=== PATIENT | male | born 1960 | race Caucasian/White ===

== ENCOUNTER 2020-06-21 10:17 | Inpatient (IN) | payer BC ==
[2020-06-21] MEDS ORDERED: Sodium Chloride 0.9% 1,000 ML IV ONE (11:33)
[2020-06-21] MEDS ORDERED: Sodium Chloride 0.9% 10 ML Syringe FLUSH PRN ×2 (11:33→11:52)
[2020-06-21] MEDS ORDERED: Iopamidol 612 MG/ML 100 ML Bottle IVPUSH ONE (11:52)
[2020-06-21] MEDS ORDERED: cefTRIAXone 1 GM in Sodium Chloride 0.9% 100 ML IV ONE (11:53)
--- NOTE | 2020-06-21 11:53 | EDM.PDOC ---
ED HPI GENERAL MEDICAL PROBLEM - General Chief Complaint: Genitourinary Problem Stated Complaint: HIGH WHITE BLOOD COUNT Time Seen by Provider: 06/21/20 11:23 Source of Information: Reports: Patient, Old Records, RN Notes Reviewed History Limitations: Reports: No Limitations - History of Present Illness INITIAL COMMENTS - FREE TEXT/NARRATIVE: Patient is a 59-year-old male presenting to the emergency department after being sent here by his primary care provider. He states that this last Saturday, he began to have body aches, fever, and generally felt unwell. Later that evening, he woke up and had blood in his urine as well as burning with urination. He continued to feel unwell throughout the day on Saturday. He was seen by his primary care provider in the clinic on Saturday, blood work was completed and showed that he had a significantly elevated white count at 21.3. He was also found to have 50-75 RBCs, 50-75 WBCs, and many bacteria in his urine. In the clinic yesterday, he received an injection of 1 g of Rocephin was started on ciprofloxacin. Last evening he began spiking fevers again and had return of body aches. He contacted his primary this morning. Blood work was checked in the office and his white count was found to have further increased to 22.34. He was sent to our facility for evaluation and possible admission for IV antibiotics due to failed outpatient treatment. He denies any nausea, vomiting, diarrhea, flank pain, or abdominal pain but does state that he has a decreased appetite. Patient states that he does have a history of bladder cancer which was in remission. He has also had elevated PSA levels since last August. He was scheduled to see Dr. Jennifer Hernandez, urologist, to have a prostate biopsy completed today, however the appointment was canceled due to his illness. He denies any known history of prostatitis or recurrent urinary tract infections. Bladder Pain Score (Numeric/FACES): 5 - Related Data Allergies Allergy/AdvReac Type Severity Reaction Status Date / Time SOHA Inhibitors Allergy Airway Verified 06/21/20 14:41 Tightness lisinopril Allergy Airway Verified 06/21/20 14:41 Tightness Home Meds: Home Meds Potassium Chloride 10 meq PO BID 10/19/13 [History] Simvastatin [Zocor] 20 mg PO BEDTIME 10/19/13 [History] Temazepam [Restoril] 15 mg PO BEDTIME PRN 10/19/13 [History] Calcium Carb, Citrate/Vit D3 [Citracal + D ER] 500 mg PO BID 06/21/20 [History] Chlorthalidone 25 mg PO DAILY 06/21/20 [History] Cholecalciferol (Vitamin D3) [Vitamin D] 2,000 mg PO DAILY 06/21/20 [History] Ciprofloxacin [Cipro XR 500 MG Tablet] 500 mg PO BID 06/21/20 [History] Indomethacin 50 mg PO TID PRN 06/21/20 [History] Levocetirizine Dihydrochloride [Xyzal] 5 mg PO BEDTIME 06/21/20 [History] Metoprolol Tartrate [Lopressor] 50 mg PO BID 06/21/20 [History] Multivitamin 1 tab PO DAILY 06/21/20 [History] Olmesartan Medoxomil [Benicar] 40 mg PO BEDTIME 06/21/20 [History] Pantoprazole [ProTONIX] 40 mg PO DAILY 06/21/20 [History] Tamsulosin [Tamsulosin 24 Hr] 0.4 mg PO BEDTIME 06/21/20 [History] Past Medical History Cardiovascular History: Reports: High Cholesterol, Hypertension Other Respiratory History: lung ca Genitourinary History: Reports: Other (See Below) Other Genitourinary History: bladder ca Oncologic (Cancer) History: Reports: Bladder, Lung Social & Family History - Tobacco Use Tobacco Use Status *Q: Never Tobacco User - Recreational Drug Use Recreational Drug Use: No ED ROS GENERAL - Review of Systems Review Of Systems: See Below Constitutional: Reports: Fever, Chills, Weakness, Fatigue, Decreased Appetite HEENT: Reports: No Symptoms Respiratory: Reports: No Symptoms Cardiovascular: Reports: No Symptoms Endocrine: Reports: No Symptoms GI/Abdominal: Reports: Decreased Appetite, Nausea. Denies: Diarrhea, Vomiting : Reports: Dysuria, Hematuria Musculoskeletal: Reports: No Symptoms Skin: Reports: No Symptoms Neurological: Reports: No Symptoms Psychiatric: Reports: No Symptoms Hematologic/Lymphatic: Reports: No Symptoms Immunologic: Reports: No Symptoms ED EXAM, RENAL/ - Physical Exam Exam: See Below General Appearance: Alert, WD/WN, No Apparent Distress Respiratory/Chest: No Respiratory Distress, Lungs Clear, Normal Breath Sounds, No Accessory Muscle Use, Chest Non-Tender Cardiovascular: Normal Peripheral Pulses, Regular Rate, Rhythm, No Edema, No Gallop, No JVD, No Murmur, No Rub GI/Abdominal: Normal Bowel Sounds, Soft, Non-Tender, No Organomegaly, No Distention, No Abnormal Bruit, No Mass Back Exam: Normal Inspection, Full Range of Motion. No: CVA Tenderness (L), CVA Tenderness (R) Neurological: Alert, Oriented, CN II-XII Intact, Normal Cognition, Normal Gait, Normal Reflexes, No Motor/Sensory Deficits Psychiatric: Normal Affect, Normal Mood Skin Exam: Warm, Dry, Intact, Normal Color, No Rash Course - Vital Signs Last Recorded V/S: Last Vital Signs Temp 98.2 F 06/22/20 20:29 Pulse 71 06/22/20 20:33 Resp 14 06/22/20 20:29 BP 128/81 06/22/20 20:33 Pulse Ox 92 L 06/22/20 20:29 - Orders/Labs/Meds Orders: Medication Orders Acetaminophen (Tylenol) 650 mg PO Q4H PRN PRN Reason: Pain (Mild 1-3)/fever Calcium Carbonate (Calcium Carbonate/Vitamin D 600 Mg-200 Unit) 1 tab PO BID [facility] Last Admin: 06/22/20 20:33 Dose: 1 tab Documented by: Admin: 06/22/20 09:00 Dose: 1 tab Documented by: Admin: 06/21/20 21:03 Dose: 1 tab Documented by: ISAURA Chlorthalidone (Chlorthalidone) 25 mg PO DAILY [facility] Last Admin: 06/22/20 09:00 Dose: 25 mg Documented by: EMILIE Cholecalciferol (Vitamin D3) 50 mcg PO DAILY [facility] Last Admin: 06/22/20 09:00 Dose: 50 mcg Documented by: EMILIE Enoxaparin Sodium (Lovenox) 40 mg SUBCUT DAILY [facility] Last Admin: 06/22/20 09:00 Dose: 40 mg Documented by: EMILIE Piperacillin Sod/Tazobactam (Sod 4.5 gm/ Sodium Chloride) 100 mls @ 25 mls/hr IV Q8H [facility] Last Admin: 06/22/20 14:39 Dose: 25 mls/hr Documented by: Infusion: 06/22/20 10:19 Dose: 25 mls/hr Documented by: Admin: 06/22/20 06:19 Dose: 25 mls/hr Documented by: Infusion: 06/22/20 01:07 Dose: 25 mls/hr Documented by: Admin: 06/21/20 21:07 Dose: 25 mls/hr Documented by: ISAURA Losartan Potassium (Cozaar) 100 mg PO BEDTIME [facility] Last Admin: 06/22/20 20:32 Dose: 100 mg Documented by: Admin: 06/21/20 21:04 Dose: 100 mg Documented by: ISAURA Metoprolol Tartrate (Lopressor) 50 mg PO BID [facility] Last Admin: 06/22/20 20:33 Dose: 50 mg Documented by: Admin: 06/22/20 09:00 Dose: 50 mg Documented by: Admin: 06/21/20 21:03 Dose: 50 mg Documented by: ISAURA Multivitamins (Thera) 1 each PO DAILY [facility] Last Admin: 06/22/20 09:00 Dose: 1 each Documented by: EMILIE Ondansetron HCl (Zofran) 4 mg IV Q6H PRN PRN Reason: Nausea/Vomiting Pantoprazole Sodium (Protonix) 40 mg PO ACBREAKFAST [facility] Last Admin: 06/22/20 06:19 Dose: 40 mg Documented by: ISAURA Potassium Chloride (Klor-Con M20) 40 meq PO BID [facility] Stop: 06/23/20 09:01 Last Admin: 06/22/20 20:31 Dose: 40 meq Documented by: Admin: 06/22/20 10:17 Dose: 40 meq Documented by: EMILIE Simvastatin (Zocor) 20 mg PO BEDTIME [facility] Last Admin: 06/22/20 20:33 Dose: 20 mg Documented by: Admin: 06/21/20 21:03 Dose: 20 mg Documented by: ISAURA Sodium Chloride (Saline Flush) 10 ml FLUSH ASDIRECTED PRN PRN Reason: Keep Vein Open Last Admin: 06/21/20 11:48 Dose: 10 ml Documented by: MARCOS Tamsulosin HCl (Flomax) 0.4 mg PO BEDTIME [facility] Last Admin: 06/22/20 20:33 Dose: 0.4 mg Documented by: Admin: 06/21/20 21:03 Dose: 0.4 mg Documented by: [id number] Temazepam (Restoril) 15 - 45 mg PO BEDTIME PRN PRN Reason: Anxiety Last Admin: 06/21/20 21:06 Dose: 15 mg Documented by: [email or web address] Labs: Laboratory Tests 06/21/20 06/21/20 06/21/20 Range/Units 11:50 11:50 11:50 WBC 20.25 H (4.23-9.07) K/mm3 RBC 5.27 (4.63-6.08) M/mm3 Hgb 15.8 (13.7-17.5) gm/dl Hct 45.9 (40.1-51.0) % MCV 87.1 (79.0-92.2) fl MCH 30.0 (25.7-32.2) pg MCHC 34.4 (32.2-35.5) g/dl RDW Std Deviation 40.3 (35.1-43.9) fL Plt Count 194 (163-337) K/mm3 MPV 8.4 L (9.4-12.3) fl Neutrophils % (Manual) 82 H (40-60) % Band Neutrophils % 0 (0-10) % Lymphocytes % (Manual) 10 L (20-40) % Atypical Lymphs % 0 % Monocytes % (Manual) 7 (2-10) % Eosinophils % (Manual) 1 (0.8-7.0) % Basophils % (Manual) 0 L (0.2-1.2) Platelet Estimate Adequate Anisocytosis 1+ slight RBC Morph Comment Abnormal PT 12.0 (9.7-12.0) SECONDS INR 1.12 Sodium 132 L (136-145) mEq/L Potassium 3.5 (3.5-5.1) mEq/L Chloride 96 L (98-107) mEq/L Carbon Dioxide 25 (21-32) mEq/L Anion Gap 14.5 (5-15) BUN 15 (7-18) mg/dL Creatinine 0.9 (0.7-1.3) mg/dL Est Cr Clr Drug Dosing 91.80 mL/min Estimated GFR (MDRD) > 60 (>60) mL/min BUN/Creatinine Ratio 16.7 (14-18) Glucose 120 H (80-115) mg/dL Lactic Acid (0.4-2.0) mmol/L Calcium 9.2 (8.5-10.1) mg/dL Total Bilirubin 1.2 H (0.2-1.0) mg/dL AST 17 (15-37) U/L ALT 27 (16-63) U/L Alkaline Phosphatase 108 (46-116) U/L C-Reactive Protein 30.2 H* (<1.0) mg/dL Total Protein 7.8 (6.4-8.2) g/dl Albumin 3.2 L (3.4-5.0) g/dl Globulin 4.6 gm/dL Albumin/Globulin Ratio 0.7 L (1-2) SARS-CoV-2 RNA ([place]) (NEGATIVE) 06/21/20 06/21/20 Range/Units 11:50 11:50 WBC (4.23-9.07) K/mm3 RBC (4.63-6.08) M/mm3 Hgb (13.7-17.5) gm/dl Hct (40.1-51.0) % MCV (79.0-92.2) fl MCH (25.7-32.2) pg MCHC (32.2-35.5) g/dl RDW Std Deviation (35.1-43.9) fL Plt Count (163-337) K/mm3 MPV (9.4-12.3) fl Neutrophils % (Manual) (40-60) % Band Neutrophils % (0-10) % Lymphocytes % (Manual) (20-40) % Atypical Lymphs % % Monocytes % (Manual) (2-10) % Eosinophils % (Manual) (0.8-7.0) % Basophils % (Manual) (0.2-1.2) Platelet Estimate Anisocytosis RBC Morph Comment PT (9.7-12.0) SECONDS INR Sodium (136-145) mEq/L Potassium (3.5-5.1) mEq/L Chloride (98-107) mEq/L Carbon Dioxide (21-32) mEq/L Anion Gap (5-15) BUN (7-18) mg/dL Creatinine (0.7-1.3) mg/dL Est Cr Clr Drug Dosing mL/min Estimated GFR (MDRD) (>60) mL/min BUN/Creatinine Ratio (14-18) Glucose (80-115) mg/dL Lactic Acid 1.0 (0.4-2.0) mmol/L Calcium (8.5-10.1) mg/dL Total Bilirubin (0.2-1.0) mg/dL AST (15-37) U/L ALT (16-63) U/L Alkaline Phosphatase (46-116) U/L C-Reactive Protein (<1.0) mg/dL Total Protein (6.4-8.2) g/dl Albumin (3.4-5.0) g/dl Globulin gm/dL Albumin/Globulin Ratio (1-2) SARS-CoV-2 RNA ([place]) Negative (NEGATIVE) Meds: Medications Generic Name Dose Route Start Last Admin Trade Name Freq PRN Reason Stop Dose Admin Acetaminophen 650 mg 06/21/20 13:38 Tylenol PO Q4H PRN Pain (Mild 1-3)/fever Calcium Carbonate 1 tab 06/21/20 21:00 06/22/20 20:33 Calcium Carbonate/Vitamin D 600 Mg-200 Unit PO 1 tab BID DANILO Administration Chlorthalidone 25 mg 06/22/20 09:00 06/22/20 09:00 Chlorthalidone PO 25 mg DAILY DANILO Administration Cholecalciferol 50 mcg 06/22/20 09:00 06/22/20 09:00 Vitamin D3 PO 50 mcg DAILY DANILO Administration Enoxaparin Sodium 40 mg 06/22/20 09:00 06/22/20 09:00 Lovenox SUBCUT 40 mg DAILY DANILO Administration Piperacillin Sod/Tazobactam 100 mls @ 25 mls/hr 06/21/20 22:00 06/22/20 14:39 Sod 4.5 gm/ Sodium Chloride IV 25 mls/hr Q8H DANILO Administration Losartan Potassium 100 mg 06/21/20 21:00 06/22/20 20:32 Cozaar PO 100 mg BEDTIME DANILO Administration Metoprolol Tartrate 50 mg 06/21/20 21:00 06/22/20 20:33 Lopressor PO 50 mg BID DANILO Administration Multivitamins 1 each 06/22/20 09:00 06/22/20 09:00 Thera PO 1 each DAILY DANILO Administration Ondansetron HCl 4 mg 06/21/20 13:38 Zofran IV Q6H PRN Nausea/Vomiting Pantoprazole Sodium 40 mg 06/22/20 06:00 06/22/20 06:19 Protonix PO 40 mg ACBREAKFAST DANILO Administration Potassium Chloride 40 meq 06/22/20 10:00 06/22/20 20:31 Klor-Con M20 PO 06/23/20 09:01 40 meq BID DANILO Administration Simvastatin 20 mg 06/21/20 21:00 06/22/20 20:33 Zocor PO 20 mg BEDTIME DANILO Administration Sodium Chloride 10 ml 06/21/20 11:33 06/21/20 11:48 Saline Flush FLUSH 10 ml ASDIRECTED PRN Administration Keep Vein Open Tamsulosin HCl 0.4 mg 06/21/20 21:00 06/22/20 20:33 Flomax PO 0.4 mg BEDTIME DANILO Administration Temazepam 15 - 45 mg 06/21/20 17:48 06/21/20 21:06 Restoril PO 15 mg BEDTIME PRN Administration Anxiety Discontinued Medications Generic Name Dose Route Start Last Admin Trade Name Freq PRN Reason Stop Dose Admin Sodium Chloride 1,000 mls @ 100 mls/hr 06/21/20 11:33 06/21/20 11:47 Normal Saline IV 06/21/20 21:32 100 mls/hr BOLUS ONE Administration Ceftriaxone Sodium 1 gm/ 100 mls @ 200 mls/hr 06/21/20 11:53 06/21/20 12:17 Sodium Chloride IV 06/21/20 12:22 200 mls/hr ONETIME ONE Administration Piperacillin Sod/Tazobactam 100 mls @ 200 mls/hr 06/21/20 14:00 06/21/20 14:58 Sod 4.5 gm/ Sodium Chloride IV 06/21/20 14:29 200 mls/hr ONETIME ONE Administration Iopamidol 100 ml 06/21/20 11:52 06/21/20 12:11 Isovue-300 (61%) IVPUSH 06/21/20 11:53 100 ml ONETIME ONE Administration Sodium Chloride 10 ml 06/21/20 11:52 06/21/20 12:11 Saline Flush FLUSH 10 ml ONETIME PRN Administration IV FLUSH - Re-Assessments/Exams Free Text/Narrative Re-Assessment/Exam: As above, patient is a 59-year-old male presenting to the emergency department after being sent here by his primary care provider for failed outpatient treatment of urinary tract infection. I have ordered blood work, urinalysis, blood cultures, IV fluids of NS at 100 mils per hour, and Rocephin 1 g IV. 06/21/20 1310 Hematology was significant for WBC elevated at 20.25, sodium 132, total bili 1.2, CRP 30.2. Lactic acid is normal. Case discussed with Dr. Goode. He will admit the patient for urinary tract infection with failed outpatient treatment. Departure - Departure Time of Disposition: 13:10 Disposition: Admitted As Inpatient 64 Condition: Good Clinical Impression: UTI, Urinary tract infectious disease - Discharge Information Sepsis Event Note (ED) - Evaluation Sepsis Screening Result: No Definite Risk
--- NOTE | 2020-06-21 12:52 | CR ---
Chest: 2 views of the chest were obtained. Comparison: Prior chest x-ray of 11/04/18. Slightly prominent superior right hilum is seen which is similar to prior chest x-ray. Heart size and mediastinum are otherwise normal. Lungs are clear with no acute parenchymal change. No acute osseous finding is appreciated. Impression: 1. Stable findings on chest x-ray as noted above. 2. Nothing acute is appreciated. Diagnostic code #2
--- NOTE | 2020-06-21 12:52 | CT ---
CT abdomen and pelvis Technique: Multiple axial sections were obtained from above the dome of the diaphragm inferiorly through the pubic symphysis. Intravenous contrast was utilized. No oral contrast has been given. Reconstructed coronal and sagittal images were obtained. Comparison: No prior CT abdomen or pelvis study is available. Findings: Slight atelectasis or scarring is seen within the left base. Small low density lesion is seen near the junction of the right and left lobe which is too small to accurately get a Hounsfield unit measurement and measures approximately 6 mm. Statistically this is most likely due to a small cyst. No additional abnormality is seen within the liver. Calcified gallstones are noted within the gallbladder. Pancreas appears within normal limits. Spleen appears within normal size. Adrenal glands show no nodule. Scattered small cysts are seen within both kidneys. Kidneys show symmetric contrast enhancement. No ureteral dilatation is appreciated. Bladder is slightly thick walled. Prostate gland is enlarged. Mild increased stool is noted within portions of the colon. Delayed images show contrast within the distal ureter and within the bladder. Minimal diverticulosis is seen. Appendix is not definitely visualized. No discrete pelvic abnormality is otherwise seen. Bone window settings were reviewed which show slight spondylolisthesis at L4-5 due to degenerative apophyseal change. Lesser degenerative change is seen within other portions of the spine. No acute osseous abnormality is appreciated. Impression: 1. Slight increased stool within the colon. 2. Bladder wall thickening which may relate to cystitis or represent residual change from some outlet obstruction from an enlarged prostate gland. 3. Other findings as noted above which are believed to be incidental. Diagnostic code #2
[2020-06-21] MEDS ORDERED: Ondansetron 4 MG/2 ML SDV IV PRN (13:38)
[2020-06-21] MEDS ORDERED: Acetaminophen 325 MG Tab PO PRN (13:38)
[2020-06-21] MEDS ORDERED: Piperacillin/Tazobactam 4.5 GM in Sodium Chloride 0.9% 100 ML IV ONE (14:00)
--- NOTE | 2020-06-21 15:55 | PCM.HP.2 ---
H&P History of Present Illness - General Date of Service: 06/21/20 Admit Problem/Dx: Admission Diagnosis/Problem Admission Diagnosis/Problem Urinary tract infection Source of Information: Patient, Old Records, Provider, RN, RN Notes Reviewed History Limitations: Reports: No Limitations - History of Present Illness Initial Comments - Free Text/Narative: This is a 59 yo who presents to ED on 06/21/2020 after being told to report here by his primary care provider in [place]. He states that he began having body aches, fever, and generalized myalgias this past Saturday. He notes later he had gross blood in his urine and pain with urination. Continue to feel unwell Saturday and made appoint with his primary care provider on Saturday. He was noted to have leukocytosis at 21.3 and his UA was positive with 50-75 RBCs, 5075 WBCs, and many bacteria in his urine. He was given 1 g of Rocephin and started on p.o. Cipro. Yesterday evening he noted that he was spiking fevers again and his myalgias had returned. He reports that he never really felt better. He was contacted by his primary care provider to see how he was doing and he stated that he continued to have issues. He therefore return for blood work and was found to still have an elevated white count at 22.34. He was then sent to emergency room as he likely required IV antibiotics. Denies any current nausea, vomiting, diarrhea, abdominal pain, or flank pain but he does state that he has decreased appetite and continued myalgias. He also states that he has a history of bladder cancer which is in remission. He notes an elevated PSA level since last August and he has been having yearly prostate biopsies. He was supposed to have an appointment today with Dr. Stevens but he is here instead. Reports one prior urinary tract infection many years ago. Reports he is on Flomax. In her ED temp was 98 F. Pulse 83. Respirations 15. Blood pressure 121/74. Pulse ox 96%. Labs are obtained showing a leukocytosis of 20.25. Hemoglobin is 15.8. Platelets are 194. Neutrophils are elevated at 82%. There is no bandemia. INR is 1.12. Sodium is slightly low at 132. Potassium 3.5. Chloride 96. Anion gap is 14.5. BUN is 15. Creatinine 0.9. GFR greater than 60. Glucose is elevated at 120. Lactic acid is 1.0. Calcium is 9.2. Bilirubin is 1.2. AST 17, ALT 27, alkaline phosphatase 108. CRP is 30.2. Albumin is slightly low at 3.2. SARS-CoV-2 RNA is negative. He is given a 1 L fluid bolus and started on [address] scan is obtained of the abdomen and interpreted by Dr. Aparicio as " 1. Slight increase stool within the colon. 2. Bladder wall thickening which may relate to cystitis or represent residual change from some outlet obstruction from enlarged prostate gland. 3. Other findings as noted above which are believed to be incidental." Chest x-ray is obtained and shows stable findings with nothing acute. He carries a history of HLD, hypertension, lung cancer, bladder cancer. Never a smoker. His PCP is Shannon Easley PA-C Bladder Pain Score (Numeric/FACES): 5 - Related Data Allergies/Adverse Reactions: Allergies Allergy/AdvReac Type Severity Reaction Status Date / Time SOHA Inhibitors Allergy Airway Verified 06/21/20 14:41 Tightness lisinopril Allergy Airway Verified 06/21/20 14:41 Tightness Home Medications: Home Meds Potassium Chloride 10 meq PO BID 10/19/13 [History] Simvastatin [Zocor] 20 mg PO BEDTIME 10/19/13 [History] Temazepam [Restoril] 15 mg PO BEDTIME PRN 10/19/13 [History] Calcium Carb, Citrate/Vit D3 [Citracal + D ER] 500 mg PO BID 06/21/20 [History] Chlorthalidone 25 mg PO DAILY 06/21/20 [History] Cholecalciferol (Vitamin D3) [Vitamin D] 2,000 mg PO DAILY 06/21/20 [History] Ciprofloxacin [Cipro XR 500 MG Tablet] 500 mg PO BID 06/21/20 [History] Indomethacin 50 mg PO TID PRN 06/21/20 [History] Levocetirizine Dihydrochloride [Xyzal] 5 mg PO BEDTIME 06/21/20 [History] Metoprolol Tartrate [Lopressor] 50 mg PO BID 06/21/20 [History] Multivitamin 1 tab PO DAILY 06/21/20 [History] Olmesartan Medoxomil [Benicar] 40 mg PO BEDTIME 06/21/20 [History] Pantoprazole [ProTONIX] 40 mg PO DAILY 06/21/20 [History] Tamsulosin [Tamsulosin 24 Hr] 0.4 mg PO BEDTIME 06/21/20 [History] Past Medical History HEENT History: Reports: Impaired Vision Other HEENT History: wear glasses Cardiovascular History: Reports: High Cholesterol, Hypertension Other Respiratory History: lung ca Genitourinary History: Reports: Other (See Below) Other Genitourinary History: bladder ca Oncologic (Cancer) History: Reports: Basal Cell Carcinoma, Bladder, Lung - Infectious Disease History Infectious Disease History: Reports: Chicken Pox - Past Surgical History GI Surgical History: Reports: Colonoscopy, EGD Social & Family History - Family History Family Medical History: No Pertinent Family History - Tobacco Use Tobacco Use Status *Q: Former Tobacco User Used Tobacco, but Quit: Yes Month/Year Tobacco Last Used: 1996 - Caffeine Use Caffeine Use: Reports: Coffee, Soda - Recreational Drug Use Recreational Drug Use: No H&P Review of Systems - Review of Systems: Review Of Systems: See Below General: Reports: Malaise, Weakness, Decreased Appetite. Denies: Fever, Chills, Fatigue HEENT: Reports: No Symptoms. Denies: Headaches, Sore Throat Pulmonary: Reports: No Symptoms. Denies: Shortness of Breath, Wheezing, Pleuritic Chest Pain, Cough, Sputum Cardiovascular: Reports: No Symptoms. Denies: Chest Pain, Palpitations, Dyspnea on Exertion, Edema Gastrointestinal: Reports: Abdominal Pain (hypogastric region), Decreased Appetite. Denies: Constipation, Diarrhea Genitourinary: Reports: Pain, Hematuria. Denies: Frequency, Incontinence Musculoskeletal: Reports: Muscle Pain (generalized ) Skin: Reports: No Symptoms. Denies: Cyanosis Psychiatric: Reports: No Symptoms. Denies: Confusion Neurological: Reports: No Symptoms. Denies: Difficulty Walking, Gait Disturbance Hematologic/Lymphatic: Reports: No Symptoms Immunologic: Reports: No Symptoms Exam - Exam Exam: See Below - Vital Signs Vital Signs: Last Vital Signs Temp 98 F 06/21/20 11:24 Pulse 78 06/21/20 14:41 Resp 20 06/21/20 14:41 BP 149/83 H 06/21/20 14:41 Pulse Ox 92 L 06/21/20 14:41 Weight: 248 lb 14.4 oz - Exam Quality Assessment: DVT Prophylaxis. No: Supplemental Oxygen, Urinary Catheter General: Alert, Oriented, Cooperative. No: Mild Distress HEENT: Conjunctiva Clear, EACs Clear, Mucosa Moist & [place], Posterior Pharynx Clear Neck: Supple, Trachea Midline Lungs: Clear to Auscultation, Normal Respiratory Effort Cardiovascular: Regular Rate, Regular Rhythm GI/Abdominal Exam: Normal Bowel Sounds, Soft, No Distention, Tender (Hypogastric region with deep palpation ) (Male) Exam: Deferred Rectal (Males) Exam: Deferred Back Exam: Normal Inspection, Full Range of Motion Extremities: Normal Inspection, Normal Range of Motion, Non-Tender, No Pedal Edema, Normal Capillary Refill Peripheral Pulses: 2+: Radial (L), Radial (R), Dorsalis Pedis (L), Dorsalis Pedis (R) Skin: Warm, Dry, Intact Neurological: Cranial Nerves Intact (Grossly ) Neuro Extensive - Mental Status: Alert, Oriented x3, Normal Mood/Affect - Patient Data Lab Results Last 24 hrs: Laboratory Results - last 24 hr 06/21/20 06/21/20 06/21/20 Range/Units 11:50 11:50 11:50 WBC 20.25 H (4.23-9.07) K/mm3 RBC 5.27 (4.63-6.08) M/mm3 Hgb 15.8 (13.7-17.5) gm/dl Hct 45.9 (40.1-51.0) % MCV 87.1 (79.0-92.2) fl MCH 30.0 (25.7-32.2) pg MCHC 34.4 (32.2-35.5) g/dl RDW Std Deviation 40.3 (35.1-43.9) fL Plt Count 194 (163-337) K/mm3 MPV 8.4 L (9.4-12.3) fl Neutrophils % (Manual) 82 H (40-60) % Band Neutrophils % 0 (0-10) % Lymphocytes % (Manual) 10 L (20-40) % Atypical Lymphs % 0 % Monocytes % (Manual) 7 (2-10) % Eosinophils % (Manual) 1 (0.8-7.0) % Basophils % (Manual) 0 L (0.2-1.2) Platelet Estimate Adequate Anisocytosis 1+ slight RBC Morph Comment Abnormal PT 12.0 (9.7-12.0) SECONDS INR 1.12 Sodium 132 L (136-145) mEq/L Potassium 3.5 (3.5-5.1) mEq/L Chloride 96 L (98-107) mEq/L Carbon Dioxide 25 (21-32) mEq/L Anion Gap 14.5 (5-15) BUN 15 (7-18) mg/dL Creatinine 0.9 (0.7-1.3) mg/dL Est Cr Clr Drug Dosing 91.80 mL/min Estimated GFR (MDRD) > 60 (>60) mL/min BUN/Creatinine Ratio 16.7 (14-18) Glucose 120 H (80-115) mg/dL Lactic Acid (0.4-2.0) mmol/L Calcium 9.2 (8.5-10.1) mg/dL Total Bilirubin 1.2 H (0.2-1.0) mg/dL AST 17 (15-37) U/L ALT 27 (16-63) U/L Alkaline Phosphatase 108 (46-116) U/L C-Reactive Protein 30.2 H* (<1.0) mg/dL Total Protein 7.8 (6.4-8.2) g/dl Albumin 3.2 L (3.4-5.0) g/dl Globulin 4.6 gm/dL Albumin/Globulin Ratio 0.7 L (1-2) SARS-CoV-2 RNA ([place]) (NEGATIVE) 06/21/20 06/21/20 Range/Units 11:50 11:50 WBC (4.23-9.07) K/mm3 RBC (4.63-6.08) M/mm3 Hgb (13.7-17.5) gm/dl Hct (40.1-51.0) % MCV (79.0-92.2) fl MCH (25.7-32.2) pg MCHC (32.2-35.5) g/dl RDW Std Deviation (35.1-43.9) fL Plt Count (163-337) K/mm3 MPV (9.4-12.3) fl Neutrophils % (Manual) (40-60) % Band Neutrophils % (0-10) % Lymphocytes % (Manual) (20-40) % Atypical Lymphs % % Monocytes % (Manual) (2-10) % Eosinophils % (Manual) (0.8-7.0) % Basophils % (Manual) (0.2-1.2) Platelet Estimate Anisocytosis RBC Morph Comment PT (9.7-12.0) SECONDS INR Sodium (136-145) mEq/L Potassium (3.5-5.1) mEq/L Chloride (98-107) mEq/L Carbon Dioxide (21-32) mEq/L Anion Gap (5-15) BUN (7-18) mg/dL Creatinine (0.7-1.3) mg/dL Est Cr Clr Drug Dosing mL/min Estimated GFR (MDRD) (>60) mL/min BUN/Creatinine Ratio (14-18) Glucose (80-115) mg/dL Lactic Acid 1.0 (0.4-2.0) mmol/L Calcium (8.5-10.1) mg/dL Total Bilirubin (0.2-1.0) mg/dL AST (15-37) U/L ALT (16-63) U/L Alkaline Phosphatase (46-116) U/L C-Reactive Protein (<1.0) mg/dL Total Protein (6.4-8.2) g/dl Albumin (3.4-5.0) g/dl Globulin gm/dL Albumin/Globulin Ratio (1-2) SARS-CoV-2 RNA ([place]) Negative (NEGATIVE) Result Diagrams: 06/21/20 11:50 06/21/20 11:50 Sepsis Event Note - Evaluation Sepsis Screening Result: No Definite Risk - Focused Exam Vital Signs: Vital Signs Temp Pulse Resp BP Pulse Ox 06/21/20 14:41 78 20 149/83 H 92 L 06/21/20 11:24 98 F 83 15 121/74 96 - Problem List (1) UTI (urinary tract infection) SNOMED Code(s): 73393249 ICD Code: N39.0 - URINARY TRACT INFECTION, SITE NOT SPECIFIED Status: Acute Priority: High Current Visit: Yes Qualifiers: Urinary tract infection type: acute cystitis Hematuria presence: with hematuria Qualified Code(s): N30.01 - Acute cystitis with hematuria (2) History of bladder cancer SNOMED Code(s): 360824651, 604440626 ICD Code: Z85.51 - PERSONAL HISTORY OF MALIGNANT NEOPLASM OF BLADDER Status: Chronic Priority: Medium Current Visit: No (3) History of lung cancer SNOMED Code(s): 288484018, 982212706 ICD Code: Z85.118 - PERSONAL HISTORY OF MALIGNANT NEOPLASM OF BRONCHUS AND LUNG Status: Chronic Priority: Low Current Visit: No (4) HLD (hyperlipidemia) SNOMED Code(s): 09052570 ICD Code: E78.5 - HYPERLIPIDEMIA, UNSPECIFIED Status: Chronic Priority: Low Current Visit: No Qualifiers: Hyperlipidemia type: unspecified Qualified Code(s): E78.5 - Hyperlipidemia, unspecified (5) HTN (hypertension) SNOMED Code(s): 38891742 ICD Code: I10 - ESSENTIAL (PRIMARY) HYPERTENSION Status: Chronic Priority: Low Current Visit: No Qualifiers: Hypertension type: unspecified Qualified Code(s): I10 - Essential (primary) hypertension Problem List Initiated/Reviewed/Updated: Yes Orders Last 24hrs: Active Orders 24 hr Category Date Time Status Patient Status [ADT] Routine ADT 06/21/20 13:07 Active Height and Weight [RC] 06 Care 06/21/20 13:38 Active Intake and Output [RC] 04,16 Care 06/21/20 13:41 Active Oxygen Therapy [RC] PRN Care 06/21/20 13:39 Active Pulse Oximetry [RC] PRN Care 06/21/20 13:41 Active Up ad Jennifer [RC] ASDIRECTED Care 06/21/20 13:38 Active VTE/DVT Education [RC] PER UNIT ROUTINE Care 06/21/20 13:39 Active Vital Signs [RC] Q4HR Care 06/21/20 13:39 Active Regular Diet [DIET] Diet 06/21/20 Lunch Active CULTURE BLOOD [BC] Stat Lab 06/21/20 11:50 Received CULTURE BLOOD [BC] Stat Lab 06/21/20 11:55 Received Acetaminophen [TylenoL] Med 06/21/20 13:38 Active 650 mg PO Q4H PRN Ondansetron [Zofran] Med 06/21/20 13:38 Active 4 mg IV Q6H PRN Piperacillin/Tazobactam [Piperacil-Tazobact] 4.5 gm Med 06/21/20 22:00 Active Sodium Chloride 0.9% [Normal Saline] 100 ml IV Q8H Sodium Chloride 0.9% [Normal Saline] 1,000 ml Med 06/21/20 11:33 Active IV BOLUS Sodium Chloride 0.9% [Saline Flush] Med 06/21/20 11:33 Active 10 ml FLUSH ASDIRECTED PRN Sodium Chloride 0.9% [Saline Flush] Med 06/21/20 11:52 Active 10 ml FLUSH ONETIME PRN Blood Culture x2 Reflex Set [OM.PC] Stat Ot 06/21/20 11:33 Ordered Saline Lock Insert [OM.PC] Stat Ot 06/21/20 11:33 Ordered Resuscitation Status Routine Resus Stat 06/21/20 14:46 Ordered Medication Orders Acetaminophen (Tylenol) 650 mg PO Q4H PRN PRN Reason: Pain (Mild 1-3)/fever Sodium Chloride (Normal Saline) 1,000 mls @ 100 mls/hr IV BOLUS ONE Stop: 06/21/20 21:32 Last Admin: 06/21/20 11:47 Dose: 100 mls/hr Documented by: MARCOS Piperacillin Sod/Tazobactam (Sod 4.5 gm/ Sodium Chloride) 100 mls @ 25 mls/hr IV Q8H [facility] Ondansetron HCl (Zofran) 4 mg IV Q6H PRN PRN Reason: Nausea/Vomiting Sodium Chloride (Saline Flush) 10 ml FLUSH ASDIRECTED PRN PRN Reason: Keep Vein Open Last Admin: 06/21/20 11:48 Dose: 10 ml Documented by: MARCOS Sodium Chloride (Saline Flush) 10 ml FLUSH ONETIME PRN PRN Reason: IV FLUSH Last Admin: 06/21/20 12:11 Dose: 10 ml Documented by: MAGDY Assessment/Plan Comment:: Assessment - Day of admission 06/21/20 * 59yo male presents to ED after being seen by PCP in [place] due to continued leukocytosis and failed outpatient UTI treatment * Reports fever, myalgias, and generalized unwell feeling starting 06/18/20 and continuing 06/19/20 * Noted gross hematuria and burning with urination on 06/18/20 * Seen by PCP on 06/20/20 and noted to have positive UA, WBC of 21.3; Given 1gm IM rocephin and started on PO Cipro * Reports no real change in symptoms- continued myalgias and fever * Seen by PCP on 06/21/20 with continued leukocytosis of 21.3 and sent to ED * CXR in ED shows stable findings and nothing acute * CT abdomen/pelvis in ED shows * 1. Slight increased stool within the colon * 2. Bladder wall thickening which may relate to cystitis or represent residual change from some outlet obstruction from enlarged prostate gland * 3. Other findings as noted above which are believed to be incidental. * Labs in ED: * WBC 20.25 * Hemoglobin 15.8 * Platelet 194 * Neutrophils 82% * INR 1.12 * Sodium 132 * Potassium 3.5 * Chloride 96 * Anion gap 14.5 * BUN 15; Creatinine 0.9; GFR >60 * Glucose 120 * Lactic acid 1.0 * Bilirubin 1.2 * AST 17, ALT 27, alkaline phosphatase 108 * CRP 30.2 * Albumin 3.2 * SARS Covid 2 RNA negative * Given 1 L fluid bolus and 1 g Rocephin in ED * Urine culture from [facility] shows gram-negative rods greater than 100,000 CFU's * Sepsis screen: * UTI and Leukocytosis but no Tachycardia, tachypnea, or fever * Does not meet criteria * Patient admitted to medical floor for management of failed outpatient UTI PLAN: UTI (urinary tract infection) History of bladder cancer * Given failed outpatient treatment and continuing symptoms will switch to Zosyn * IV fluids as ordered * Await urine culture from [place] * Monitor labs * Patient canceled Urology follow-up appointment today (Dr. Stevens) will need to reschedule at discharge * Tylenol for fever * Await blood cultures History of lung cancer HLD (hyperlipidemia) HTN (hypertension) * No current concerns * Review/reconcile home medications Code status: Full code PCP: Shannon Easley PA-C DVT Prophylaxis: Lovenox Social: Patient lives alone in [place]. No mobility concerns Disposition: Admit patient inpatient for failed outpatient UTI. Anticipated LOS 2-3 days. - Mortality Measure Prognosis:: Good
[2020-06-21] MEDS: Calcium Carbonate/Vitamin D3 600 MG-200 Units Tab PO SCH (21:03)
[2020-06-21] MEDS: Simvastatin 20 MG Tab PO SCH (21:03)
[2020-06-21] MEDS: Tamsulosin 0.4 MG Cap.ER PO SCH (21:03)
[2020-06-21] MEDS: Metoprolol Tartrate 50 MG Tab PO SCH (21:03)
[2020-06-21] MEDS: Losartan 100 MG Tab PO SCH (21:04)
[2020-06-21] MEDS: Temazepam 15 MG Cap PO PRN (21:06)
[2020-06-21] MEDS: Piperacillin/Tazobactam 4.5 GM in Sodium Chloride 0.9% 100 ML IV SCH (21:07)
[2020-06-22] MEDS: Pantoprazole 40 MG Tab.CR PO SCH (06:19)
[2020-06-22] MEDS: Piperacillin/Tazobactam 4.5 GM in Sodium Chloride 0.9% 100 ML IV SCH ×3 (06:19→22:09)
--- NOTE | 2020-06-22 07:35 | PCM.PN ---
- General Info Date of Service: 06/22/20 Admission Dx/Problem (Free Text): Admission Diagnosis/Problem Admission Diagnosis/Problem Urinary tract infection Subjective Update: In to see Robert. He reports he feels much better today. Labs have improved with a white count that is down to 13.32. CRP is also improved. We will continue current treatment plan awaiting blood culture sugars and urine cultures. Functional Status: Reports: Pain Controlled, Tolerating Diet, Ambulating, Urinating. Denies: New Symptoms - Review of Systems General: Reports: No Symptoms. Denies: Fever, Weakness, Fatigue, Malaise, Chills HEENT: Reports: No Symptoms. Denies: Headaches, Sore Throat Pulmonary: Reports: No Symptoms. Denies: Shortness of Breath, Cough, Sputum, Wheezing Cardiovascular: Reports: No Symptoms. Denies: Chest Pain, Palpitations, Dyspnea on Exertion, Edema Gastrointestinal: Reports: No Symptoms. Denies: Abdominal Pain, Constipation, Diarrhea, Nausea, Vomiting Genitourinary: Reports: Pain (with urination - improved ) Musculoskeletal: Reports: No Symptoms Skin: Reports: No Symptoms. Denies: Cyanosis Neurological: Reports: No Symptoms. Denies: Confusion Psychiatric: Reports: No Symptoms - Patient Data Vitals - Most Recent: Last Vital Signs Temp 98.4 F 06/22/20 03:24 Pulse 73 06/22/20 03:24 Resp 16 06/22/20 03:24 BP 139/83 06/22/20 03:24 Pulse Ox 91 L 06/22/20 03:24 Weight - Most Recent: 248 lb 9.6 oz I&O - Last 24 Hours: Intake & Output 06/21/20 06/22/20 06/22/20 22:59 06:59 14:59 Intake Total 700 1600 Output Total 1250 Balance 700 350 Lab Results Last 24 Hours: Laboratory Results - last 24 hr 06/21/20 06/21/20 06/21/20 Range/Units 11:50 11:50 11:50 WBC 20.25 H (4.23-9.07) K/mm3 RBC 5.27 (4.63-6.08) M/mm3 Hgb 15.8 (13.7-17.5) gm/dl Hct 45.9 (40.1-51.0) % MCV 87.1 (79.0-92.2) fl MCH 30.0 (25.7-32.2) pg MCHC 34.4 (32.2-35.5) g/dl RDW Std Deviation 40.3 (35.1-43.9) fL Plt Count 194 (163-337) K/mm3 MPV 8.4 L (9.4-12.3) fl Neutrophils % (Manual) 82 H (40-60) % Band Neutrophils % 0 (0-10) % Lymphocytes % (Manual) 10 L (20-40) % Atypical Lymphs % 0 % Monocytes % (Manual) 7 (2-10) % Eosinophils % (Manual) 1 (0.8-7.0) % Basophils % (Manual) 0 L (0.2-1.2) Platelet Estimate Adequate Anisocytosis 1+ slight RBC Morph Comment Abnormal PT 12.0 (9.7-12.0) SECONDS INR 1.12 Sodium 132 L (136-145) mEq/L Potassium 3.5 (3.5-5.1) mEq/L Chloride 96 L (98-107) mEq/L Carbon Dioxide 25 (21-32) mEq/L Anion Gap 14.5 (5-15) BUN 15 (7-18) mg/dL Creatinine 0.9 (0.7-1.3) mg/dL Est Cr Clr Drug Dosing 91.80 mL/min Estimated GFR (MDRD) > 60 (>60) mL/min BUN/Creatinine Ratio 16.7 (14-18) Glucose 120 H (80-115) mg/dL Lactic Acid (0.4-2.0) mmol/L Calcium 9.2 (8.5-10.1) mg/dL Total Bilirubin 1.2 H (0.2-1.0) mg/dL AST 17 (15-37) U/L ALT 27 (16-63) U/L Alkaline Phosphatase 108 (46-116) U/L C-Reactive Protein 30.2 H* (<1.0) mg/dL Total Protein 7.8 (6.4-8.2) g/dl Albumin 3.2 L (3.4-5.0) g/dl Globulin 4.6 gm/dL Albumin/Globulin Ratio 0.7 L (1-2) SARS-CoV-2 RNA ([place]) (NEGATIVE) 06/21/20 06/21/20 Range/Units 11:50 11:50 WBC (4.23-9.07) K/mm3 RBC (4.63-6.08) M/mm3 Hgb (13.7-17.5) gm/dl Hct (40.1-51.0) % MCV (79.0-92.2) fl MCH (25.7-32.2) pg MCHC (32.2-35.5) g/dl RDW Std Deviation (35.1-43.9) fL Plt Count (163-337) K/mm3 MPV (9.4-12.3) fl Neutrophils % (Manual) (40-60) % Band Neutrophils % (0-10) % Lymphocytes % (Manual) (20-40) % Atypical Lymphs % % Monocytes % (Manual) (2-10) % Eosinophils % (Manual) (0.8-7.0) % Basophils % (Manual) (0.2-1.2) Platelet Estimate Anisocytosis RBC Morph Comment PT (9.7-12.0) SECONDS INR Sodium (136-145) mEq/L Potassium (3.5-5.1) mEq/L Chloride (98-107) mEq/L Carbon Dioxide (21-32) mEq/L Anion Gap (5-15) BUN (7-18) mg/dL Creatinine (0.7-1.3) mg/dL Est Cr Clr Drug Dosing mL/min Estimated GFR (MDRD) (>60) mL/min BUN/Creatinine Ratio (14-18) Glucose (80-115) mg/dL Lactic Acid 1.0 (0.4-2.0) mmol/L Calcium (8.5-10.1) mg/dL Total Bilirubin (0.2-1.0) mg/dL AST (15-37) U/L ALT (16-63) U/L Alkaline Phosphatase (46-116) U/L C-Reactive Protein (<1.0) mg/dL Total Protein (6.4-8.2) g/dl Albumin (3.4-5.0) g/dl Globulin gm/dL Albumin/Globulin Ratio (1-2) SARS-CoV-2 RNA ([place]) Negative (NEGATIVE) Med Orders - Current: Current Medications Acetaminophen (Tylenol) 650 mg PO Q4H PRN PRN Reason: Pain (Mild 1-3)/fever Calcium Carbonate (Calcium Carbonate/Vitamin D 600 Mg-200 Unit) 1 tab PO BID [facility] Last Admin: 06/21/20 21:03 Dose: 1 tab Documented by: Chlorthalidone (Chlorthalidone) 25 mg PO DAILY [facility] Cholecalciferol (Vitamin D3) 50 mcg PO DAILY [facility] Enoxaparin Sodium (Lovenox) 40 mg SUBCUT DAILY [facility] Piperacillin Sod/Tazobactam (Sod 4.5 gm/ Sodium Chloride) 100 mls @ 25 mls/hr IV Q8H [facility] Last Admin: 06/22/20 06:19 Dose: 25 mls/hr Documented by: Losartan Potassium (Cozaar) 100 mg PO BEDTIME [facility] Last Admin: 06/21/20 21:04 Dose: 100 mg Documented by: Metoprolol Tartrate (Lopressor) 50 mg PO BID [facility] Last Admin: 06/21/20 21:03 Dose: 50 mg Documented by: Multivitamins (Thera) 1 each PO DAILY [facility] Ondansetron HCl (Zofran) 4 mg IV Q6H PRN PRN Reason: Nausea/Vomiting Pantoprazole Sodium (Protonix) 40 mg PO ACBREAKFAST [facility] Last Admin: 06/22/20 06:19 Dose: 40 mg Documented by: Simvastatin (Zocor) 20 mg PO BEDTIME [facility] Last Admin: 06/21/20 21:03 Dose: 20 mg Documented by: Sodium Chloride (Saline Flush) 10 ml FLUSH ASDIRECTED PRN PRN Reason: Keep Vein Open Last Admin: 06/21/20 11:48 Dose: 10 ml Documented by: Tamsulosin HCl (Flomax) 0.4 mg PO BEDTIME [facility] Last Admin: 06/21/20 21:03 Dose: 0.4 mg Documented by: Temazepam (Restoril) 15 - 45 mg PO BEDTIME PRN PRN Reason: Anxiety Last Admin: 06/21/20 21:06 Dose: 15 mg Documented by: Discontinued Medications Sodium Chloride (Normal Saline) 1,000 mls @ 100 mls/hr IV BOLUS ONE Stop: 06/21/20 21:32 Last Admin: 06/21/20 11:47 Dose: 100 mls/hr Documented by: Ceftriaxone Sodium 1 gm/ (Sodium Chloride) 100 mls @ 200 mls/hr IV ONETIME ONE Stop: 06/21/20 12:22 Last Admin: 06/21/20 12:17 Dose: 200 mls/hr Documented by: Piperacillin Sod/Tazobactam (Sod 4.5 gm/ Sodium Chloride) 100 mls @ 200 mls/hr IV ONETIME ONE Stop: 06/21/20 14:29 Last Admin: 06/21/20 14:58 Dose: 200 mls/hr Documented by: Iopamidol (Isovue-300 (61%)) 100 ml IVPUSH ONETIME ONE Stop: 06/21/20 11:53 Last Admin: 06/21/20 12:11 Dose: 100 ml Documented by: Sodium Chloride (Saline Flush) 10 ml FLUSH ONETIME PRN PRN Reason: IV FLUSH Last Admin: 06/21/20 12:11 Dose: 10 ml Documented by: - Exam Quality Assessment: DVT Prophylaxis. No: Supplemental Oxygen General: Alert, Oriented, Cooperative, No Acute Distress HEENT: Pupils Equal, Pupils Reactive, Mucous Membr. Moist/[place] Neck: Supple, Trachea Midline Lungs: Clear to Auscultation, Normal Respiratory Effort GI/Abdominal Exam: Normal Bowel Sounds, Soft, Non-Tender, No Distention (Male) Exam: Deferred Back Exam: Normal Inspection, Full Range of Motion Extremities: Normal Inspection, Normal Range of Motion, Non-Tender, No Pedal Jaylan ma Peripheral Pulses: 2+: Radial (L), Radial (R), Dorsalis Pedis (L), Dorsalis Pedis (R) Skin: Warm, Dry, Intact Neurological: No New Focal Deficit Psy/Mental Status: Alert, Normal Affect, Normal Mood Sepsis Event Note - Evaluation Sepsis Screening Result: No Definite Risk - Focused Exam Vital Signs: Vital Signs Temp Pulse Resp BP Pulse Ox 06/22/20 03:24 98.4 F 73 16 139/83 91 L 06/22/20 01:08 73 92 L 06/21/20 23:18 98.8 F 78 18 95/46 L 88 L 06/21/20 21:05 114/62 06/21/20 21:04 114/62 06/21/20 21:03 83 114/62 06/21/20 19:50 99.7 F 83 16 104/58 L 92 L - Problem List & Annotations (1) UTI (urinary tract infection) SNOMED Code(s): 94292875 Code(s): N39.0 - URINARY TRACT INFECTION, SITE NOT SPECIFIED Status: Acute Priority: High Current Visit: Yes Qualifiers: Urinary tract infection type: acute cystitis Hematuria presence: with hematuria Qualified Code(s): N30.01 - Acute cystitis with hematuria (2) History of bladder cancer SNOMED Code(s): 799188717, 057253947 Code(s): Z85.51 - PERSONAL HISTORY OF MALIGNANT NEOPLASM OF BLADDER Status: Chronic Priority: Medium Current Visit: No (3) History of lung cancer SNOMED Code(s): 084190015, 590043884 Code(s): Z85.118 - PERSONAL HISTORY OF MALIGNANT NEOPLASM OF BRONCHUS AND LUNG Status: Chronic Priority: Low Current Visit: No (4) HLD (hyperlipidemia) SNOMED Code(s): 39768956 Code(s): E78.5 - HYPERLIPIDEMIA, UNSPECIFIED Status: Chronic Priority: Low Current Visit: No Qualifiers: Hyperlipidemia type: unspecified Qualified Code(s): E78.5 - Hyperlipidemia, unspecified (5) HTN (hypertension) SNOMED Code(s): 49239714 Code(s): I10 - ESSENTIAL (PRIMARY) HYPERTENSION Status: Chronic Priority: Low Current Visit: No Qualifiers: Hypertension type: unspecified Qualified Code(s): I10 - Essential (primary) hypertension (6) Hypokalemia SNOMED Code(s): 03326029 Code(s): E87.6 - HYPOKALEMIA Status: Acute Priority: High Current Visit: Yes - Problem List Review Problem List Initiated/Reviewed/Updated: Yes - My Orders Last 24 Hours: My Active Orders 06/21/20 Lunch Regular Diet [DIET] 06/21/20 13:38 Height and Weight [RC] 06 Up ad Jennifer [RC] BID Acetaminophen [TylenoL] 650 mg PO Q4H PRN Ondansetron [Zofran] 4 mg IV Q6H PRN 06/21/20 13:39 Oxygen Therapy [RC] PRN VTE/DVT Education [RC] DAILY Vital Signs [RC] Q4HR 06/21/20 13:41 Intake and Output [RC] 04,16 Pulse Oximetry [RC] PRN 06/21/20 17:48 Temazepam [Restoril] 15 - 45 mg PO BEDTIME PRN 06/21/20 21:00 Calcium Carbonate/Vitamin D3 [Calcium Carbonate/Vitamin D 600 MG-200 Unit] 1 tab PO BID Losartan [Cozaar] 100 mg PO BEDTIME Metoprolol Tartrate [Lopressor] 50 mg PO BID Simvastatin [Zocor] 20 mg PO BEDTIME Tamsulosin [Flomax] 0.4 mg PO BEDTIME 06/21/20 22:00 Piperacillin/Tazobactam [Piperacil-Tazobact] 4.5 gm Sodium Chloride 0.9% [Normal Saline] 100 ml IV Q8H 06/22/20 06:00 Pantoprazole [ProTONIX] 40 mg PO ACBREAKFAST 06/22/20 07:33 BASIC METABOLIC PANEL,BMP [CHEM] Routine CBC WITH AUTO DIFF [HEME] Routine MAGNESIUM [CHEM] Routine 06/22/20 07:34 CRP [C-REACTIVE PROTEIN] [CHEM] Routine 06/22/20 09:00 Chlorthalidone 25 mg PO DAILY Cholecalciferol (Vitamin D3) [Vitamin D3] 50 mcg PO DAILY Enoxaparin [Lovenox] 40 mg SUBCUT DAILY Multivitamins,Therapeutic [Thera] 1 each PO DAILY 06/23/20 05:11 BASIC METABOLIC PANEL,BMP [CHEM] AM CBC WITH AUTO DIFF [HEME] AM CRP [C-REACTIVE PROTEIN] [CHEM] AM MAGNESIUM [CHEM] AM 06/24/20 05:11 BASIC METABOLIC PANEL,BMP [CHEM] AM CBC WITH AUTO DIFF [HEME] AM CRP [C-REACTIVE PROTEIN] [CHEM] AM MAGNESIUM [CHEM] AM 06/25/20 05:11 BASIC METABOLIC PANEL,BMP [CHEM] AM CBC WITH AUTO DIFF [HEME] AM CRP [C-REACTIVE PROTEIN] [CHEM] AM MAGNESIUM [CHEM] AM 06/26/20 05:11 BASIC METABOLIC PANEL,BMP [CHEM] AM CBC WITH AUTO DIFF [HEME] AM CRP [C-REACTIVE PROTEIN] [CHEM] AM MAGNESIUM [CHEM] AM - Assessment Assessment:: Assessment - Day of admission 06/21/20 * 59yo male presents to ED after being seen by PCP in [place] due to continued leukocytosis and failed outpatient UTI treatment * Reports fever, myalgias, and generalized unwell feeling starting 06/18/20 and continuing 06/19/20 * Noted gross hematuria and burning with urination on 06/18/20 * Seen by PCP on 06/20/20 and noted to have positive UA, WBC of 21.3; Given 1gm IM rocephin and started on PO Cipro * Reports no real change in symptoms- continued myalgias and fever * Seen by PCP on 06/21/20 with continued leukocytosis of 21.3 and sent to ED * CXR in ED shows stable findings and nothing acute * CT abdomen/pelvis in ED shows * 1. Slight increased stool within the colon * 2. Bladder wall thickening which may relate to cystitis or represent residual change from some outlet obstruction from enlarged prostate gland * 3. Other findings as noted above which are believed to be incidental. * Labs in ED: * WBC 20.25 * Hemoglobin 15.8 * Platelet 194 * Neutrophils 82% * INR 1.12 * Sodium 132 * Potassium 3.5 * Chloride 96 * Anion gap 14.5 * BUN 15; Creatinine 0.9; GFR >60 * Glucose 120 * Lactic acid 1.0 * Bilirubin 1.2 * AST 17, ALT 27, alkaline phosphatase 108 * CRP 30.2 * Albumin 3.2 * SARS Covid 2 RNA negative * Given 1 L fluid bolus and 1 g Rocephin in ED * Urine culture from [facility] shows gram-negative rods greater than 100,000 CFU's * Sepsis screen: * UTI and Leukocytosis but no Tachycardia, tachypnea, or fever * Does not meet criteria * Patient admitted to medical floor for management of failed outpatient UTI 06/22/20 * Continues to improve clinically * Reports continued but improved pain with urination; no other symptoms * Labs today: * WBC 13.32 * Neutrophils 73.5% * Sodium 134 * Potassium 3.4 * Anion gap 17.4 * CRP 18.7 * Day 2 of zosyn * Urine cultures growing gram negative rods thus far * Awaiting blood cultures * Continue current treatment plan - Plan Plan:: UTI (urinary tract infection) History of bladder cancer * Given failed outpatient treatment and continuing symptoms will switch to Zosyn * Discontinue IV fluids * Await urine culture from [place] - gram negative rods thus far * Monitor labs * Patient canceled Urology follow-up appointment today (Dr. Stevens) will need to reschedule at discharge * Tylenol for fever * Await blood cultures Hypokalemia * Supplement * Monitor labs History of lung cancer HLD (hyperlipidemia) HTN (hypertension) * No current concerns * Review/reconcile home medications Code status: Full code PCP: Shannon Easley PA-C DVT Prophylaxis: Lovenox Social: Patient lives alone in [place]. No mobility concerns Disposition: Admit patient inpatient for failed outpatient UTI. Anticipated LOS 2-3 days.
[2020-06-22] MEDS: Multivitamins,Therapeutic Tab PO SCH (09:00)
[2020-06-22] MEDS: Cholecalciferol (Vitamin D3) 25 MCG Tab PO SCH (09:00)
[2020-06-22] MEDS: Calcium Carbonate/Vitamin D3 600 MG-200 Units Tab PO SCH ×2 (09:00→20:33)
[2020-06-22] MEDS: Enoxaparin 40 MG/0.4 ML Syringe SUBCUT SCH (09:00)
[2020-06-22] MEDS: Metoprolol Tartrate 50 MG Tab PO SCH ×2 (09:00→20:33)
[2020-06-22] MEDS: Chlorthalidone 25 MG Tab PO SCH (09:00)
[2020-06-22] MEDS: Potassium Chloride 20 MEQ Tab.ER PO SCH ×2 (10:17→20:31)
[2020-06-22] MEDS: Losartan 100 MG Tab PO SCH (20:32)
[2020-06-22] MEDS: Tamsulosin 0.4 MG Cap.ER PO SCH (20:33)
[2020-06-22] MEDS: Simvastatin 20 MG Tab PO SCH (20:33)
[2020-06-22] MEDS: Temazepam 15 MG Cap PO PRN (22:09)
[2020-06-23] MEDS: Pantoprazole 40 MG Tab.CR PO SCH (05:52)
[2020-06-23] MEDS: Piperacillin/Tazobactam 4.5 GM in Sodium Chloride 0.9% 100 ML IV SCH (05:56)
[2020-06-23] MEDS: Cholecalciferol (Vitamin D3) 25 MCG Tab PO SCH (09:41)
[2020-06-23] MEDS: Calcium Carbonate/Vitamin D3 600 MG-200 Units Tab PO SCH (09:41)
[2020-06-23] MEDS: Potassium Chloride 20 MEQ Tab.ER PO SCH (09:41)
[2020-06-23] MEDS: Chlorthalidone 25 MG Tab PO SCH (09:41)
[2020-06-23] MEDS: Metoprolol Tartrate 50 MG Tab PO SCH (09:41)
[2020-06-23] MEDS: Multivitamins,Therapeutic Tab PO SCH (09:41)
[2020-06-23] MEDS: Enoxaparin 40 MG/0.4 ML Syringe SUBCUT SCH (09:42)
--- NOTE | 2020-06-23 10:20 | PCM.DCSUM1 ---
Discharge Summary - Hospital Course HPI Initial Comments: This is a 59 yo who presents to ED on 06/21/2020 after being told to report here by his primary care provider in [place]. He states that he began having body aches, fever, and generalized myalgias this past Saturday. He notes later he had gross blood in his urine and pain with urination. Continue to feel unwell Saturday and made appoint with his primary care provider on Saturday. He was noted to have leukocytosis at 21.3 and his UA was positive with 50-75 RBCs, 5075 WBCs, and many bacteria in his urine. He was given 1 g of Rocephin and started on p.o. Cipro. Yesterday evening he noted that he was spiking fevers again and his myalgias had returned. He reports that he never really felt better. He was contacted by his primary care provider to see how he was doing and he stated that he continued to have issues. He therefore return for blood work and was found to still have an elevated white count at 22.34. He was then sent to emergency room as he likely required IV antibiotics. Denies any current nausea, vomiting, diarrhea, abdominal pain, or flank pain but he does state that he has decreased appetite and continued myalgias. He also states that he has a history of bladder cancer which is in remission. He notes an elevated PSA level since august and he has been having yearly prostate biopsies. He was supposed to have an appointment today with Dr. Stevens but he is here instead. Reports one prior urinary tract infection many years ago. Reports he is on Flomax. In her ED temp was 98 F. Pulse 83. Respirations 15. Blood pressure 121/74. Pulse ox 96%. Labs are obtained showing a leukocytosis of 20.25. Hemoglobin is 15.8. Platelets are 194. Neutrophils are elevated at 82%. There is no bandemia. INR is 1.12. Sodium is slightly low at 132. Potassium 3.5. Chloride 96. Anion gap is 14.5. BUN is 15. Creatinine 0.9. GFR greater than 60. Glucose is elevated at 120. Lactic acid is 1.0. Calcium is 9.2. Bilirubin is 1.2. AST 17, ALT 27, alkaline phosphatase 108. CRP is 30.2. Albumin is slightly low at 3.2. SARS-CoV-2 RNA is negative. He is given a 1 L fluid bolus and started on [address] scan is obtained of the abdomen and interpreted by Dr. Aparicio as " 1. Slight increase stool within the colon. 2. Bladder wall thickening which may relate to cystitis or represent residual change from some outlet obstruction from enlarged prostate gland. 3. Other findings as noted above which are believed to be incidental." Chest x-ray is obtained and shows stable findings with nothing acute. He carries a history of HLD, hypertension, lung cancer, bladder cancer. Never a smoker. His PCP is Shannon Easley PA-C Diagnosis: Stroke: No - Discharge Data Discharge Date: 06/23/20 (Admit date: 06/21/20) Discharge Disposition: Home, Self-Care 01 Condition: Good - Referral to Home Health Primary Care Physician: Shannon Easley PA-C - Discharge Diagnosis/Problem(s) (1) UTI (urinary tract infection) SNOMED Code(s): 29142370 ICD Code: N39.0 - URINARY TRACT INFECTION, SITE NOT SPECIFIED Status: Acute Priority: High Current Visit: Yes Qualifiers: Urinary tract infection type: acute cystitis Hematuria presence: with hematuria Qualified Code(s): N30.01 - Acute cystitis with hematuria (2) History of bladder cancer SNOMED Code(s): 535394099, 108062328 ICD Code: Z85.51 - PERSONAL HISTORY OF MALIGNANT NEOPLASM OF BLADDER Status: Chronic Priority: Medium Current Visit: No (3) History of lung cancer SNOMED Code(s): 345678110, 881329749 ICD Code: Z85.118 - PERSONAL HISTORY OF MALIGNANT NEOPLASM OF BRONCHUS AND LUNG Status: Chronic Priority: Low Current Visit: No (4) HLD (hyperlipidemia) SNOMED Code(s): 98531923 ICD Code: E78.5 - HYPERLIPIDEMIA, UNSPECIFIED Status: Chronic Priority: Low Current Visit: No Qualifiers: Hyperlipidemia type: unspecified Qualified Code(s): E78.5 - Hyperlipidemia, unspecified (5) HTN (hypertension) SNOMED Code(s): 44829608 ICD Code: I10 - ESSENTIAL (PRIMARY) HYPERTENSION Status: Chronic Priority: Low Current Visit: No Qualifiers: Hypertension type: unspecified Qualified Code(s): I10 - Essential (primary) hypertension (6) Hypokalemia SNOMED Code(s): 57594224 ICD Code: E87.6 - HYPOKALEMIA Status: Resolved Priority: High Current Visit: Yes - Patient Summary/Data Labs Pending at D/C: None Recommended Follow-up Testing/Procedures: Follow-up with PCP within 7-10 days of discharge, sooner if needed -Recommend re-check CBC, CMP, Magnesium at that visit Follow-up with urology as discussed. Per the patient urology nurse will contact patient on 06/27/20 to re-schedule missed appointment while patient was hospitalized. Hospital Course: This is a 59-year-old male who presented to ED on 06/21/20 2 continue leukocytosis and failed outpatient treatment of UTI. He continued to have fever myalgias and generalized unwell feeling after starting treatment and was known to have gross hematuria and burning with urination. He was given IM Rocephin and p.o. Cipro but reported no real change in symptoms. He was noted to have a leukocytosis of 21.3 at his PCP office on 06/21/2020 and was sent to our ED. CT of the abdomen pelvis in the ED was obtained and shows slight increase stool within the colon along with bladder wall thickening and other incidental findings. WBC in the ED was 20.25. GFR was greater than 60. He was given a 1 L fluid bolus and started on 1 g of Rocephin in the ED. Urine culture in [place] was noted to show gram- negative rods at greater than 100,000 CFU's. The patient did not meet sepsis criteria. He was started on IV Zosyn given his failed outpatient treatment and continuation of symptoms. He was given IV fluids and blood cultures remain negative. He did note that he was supposed to follow-up with Dr. Jennifer Hanley, urology, while he was admitted for repeat prostate biopsy. He did call and cancel that appointment and he reports that the nurse from urology will be contacting him on June 27 to reschedule. Urine cultures ultimately grew out pansensitive E. coli. He was switched over to p.o. Keflex and will be discharged on p.o. Keflex 500 mg 4 times daily. Potassium was low and was supplemented. His pain with urination did improve greatly although it was still present on discharge. All home medications were continued and he was discharged on 4 more days of p.o. Keflex as noted. Recommend follow-up with PCP within 7 to 10 days, sooner if needed. Recommend repeat CBC, CMP, magnesium at that visit. He was advised to return the emergency room or contact his primary care provider should symptoms return or worsen. Discharged today. - Patient Instructions Diet: Usual Diet as Tolerated Activity: As Tolerated Driving: Do Not Drive (today ) Showering/Bathing: May Shower Notify Provider of: Fever, Increased Pain, Nausea and/or Vomiting Other/Special Instructions: Follow-up with primary care provider within 7-10 days of discharge, sooner if needed. Resume home medications as directed. Follow-up with urology as we discussed. You were prescribed an oral antibiotic. Take this until it is gone even if you feel 100% better. Should symptoms return or worsen contact your primary care provider or return to the Emergency Departement. - Discharge Plan *PRESCRIPTION DRUG MONITORING PROGRAM REVIEWED*: No *COPY OF PRESCRIPTION DRUG MONITORING REPORT IN PATIENT LIO: No Prescriptions/Med Rec: cephALEXin [Keflex] 500 mg PO Q6HR #15 cap Home Medications: Home Meds Potassium Chloride 10 meq PO BID 10/19/13 [History] Simvastatin [Zocor] 20 mg PO BEDTIME 10/19/13 [History] Temazepam [Restoril] 15 mg PO BEDTIME PRN 10/19/13 [History] Calcium Carb, Citrate/Vit D3 [Citracal + D ER] 500 mg PO BID 06/21/20 [History] Chlorthalidone 25 mg PO DAILY 06/21/20 [History] Cholecalciferol (Vitamin D3) [Vitamin D] 2,000 mg PO DAILY 06/21/20 [History] Indomethacin 50 mg PO TID PRN 06/21/20 [History] Levocetirizine Dihydrochloride [Xyzal] 5 mg PO BEDTIME 06/21/20 [History] Metoprolol Tartrate [Lopressor] 50 mg PO BID 06/21/20 [History] Multivitamin 1 tab PO DAILY 06/21/20 [History] Olmesartan Medoxomil [Benicar] 40 mg PO BEDTIME 06/21/20 [History] Pantoprazole [ProTONIX] 40 mg PO DAILY 06/21/20 [History] Tamsulosin [Flomax] 0.4 mg PO BEDTIME 06/21/20 [History] cephALEXin [Keflex] 500 mg PO Q6HR #15 cap 06/23/20 [Rx] Oxygen Therapy Mode: Room Air Patient Handouts: Sepsis, Diagnosis, Adult Forms: ED Department Discharge Referrals: Shannon Easley PA-C [Primary Care Provider] - 07/05/20 9:00 am (Hospital follow-up appointment.) - Discharge Summary/Plan Comment DC Time >30 min.: Yes (45 mins ) - General Info Date of Service: 06/23/20 Admission Dx/Problem (Free Text: Admission Diagnosis/Problem Admission Diagnosis/Problem Urinary tract infection Functional Status: Reports: Pain Controlled, Tolerating Diet, Ambulating, Urinating. Denies: New Symptoms - Review of Systems General: Reports: No Symptoms. Denies: Fever, Weakness, Fatigue, Malaise, Chills HEENT: Reports: No Symptoms. Denies: Headaches, Sore Throat Pulmonary: Reports: No Symptoms. Denies: Shortness of Breath, Cough, Sputum, Wheezing Cardiovascular: Reports: No Symptoms. Denies: Chest Pain, Palpitations Gastrointestinal: Reports: No Symptoms. Denies: Abdominal Pain, Constipation, Diarrhea, Nausea, Vomiting Genitourinary: Reports: Pain (but iproved ), Other (Urinary hesitation). Denies: Incontinence, Hematuria Musculoskeletal: Reports: No Symptoms Skin: Reports: No Symptoms. Denies: Cyanosis Neurological: Reports: No Symptoms. Denies: Confusion, Difficulty Walking, Gait Disturbance Psychiatric: Reports: No Symptoms - Patient Data Vitals - Most Recent: Last Vital Signs Temp 97.9 F 06/23/20 07:42 Pulse 78 06/23/20 09:41 Resp 16 06/23/20 07:42 BP 129/74 06/23/20 09:41 Pulse Ox 94 L 06/23/20 09:40 Weight - Most Recent: 250 lb 4.8 oz I&O - Last 24 hours: Intake & Output 06/22/20 06/23/20 06/23/20 22:59 06:59 14:59 Intake Total 1820 1000 Output Total 750 1925 Balance 1070 -925 Lab Results - Last 24 hrs: Laboratory Results - last 24 hr 06/23/20 06/23/20 Range/Units 06:02 06:02 WBC 7.93 (4.23-9.07) K/mm3 RBC 5.04 (4.63-6.08) M/mm3 Hgb 14.7 (13.7-17.5) gm/dl Hct 44.0 (40.1-51.0) % MCV 87.3 (79.0-92.2) fl MCH 29.2 (25.7-32.2) pg MCHC 33.4 (32.2-35.5) g/dl RDW Std Deviation 39.2 (35.1-43.9) fL Plt Count 240 (163-337) K/mm3 MPV 8.3 L (9.4-12.3) fl Neut % (Auto) 62.8 (34.0-67.9) % Lymph % (Auto) 15.3 L (21.8-53.1) % [place] % (Auto) 14.1 H (5.3-12.2) % Eos % (Auto) 6.8 (0.8-7.0) Baso % (Auto) 0.4 (0.1-1.2) % Neut # (Auto) 4.98 (1.78-5.38) K/mm3 Lymph # (Auto) 1.21 L (1.32-3.57) K/mm3 [place] # (Auto) 1.12 H (0.30-0.82) K/mm3 Eos # (Auto) 0.54 (0.04-0.54) K/mm3 Baso # (Auto) 0.03 (0.01-0.08) K/mm3 Sodium 134 L (136-145) mEq/L Potassium 3.7 (3.5-5.1) mEq/L Chloride 97 L (98-107) mEq/L Carbon Dioxide 25 (21-32) mEq/L Anion Gap 15.7 H (5-15) BUN 13 (7-18) mg/dL Creatinine 0.8 (0.7-1.3) mg/dL Est Cr Clr Drug Dosing 106.43 mL/min Estimated GFR (MDRD) > 60 (>60) mL/min BUN/Creatinine Ratio 16.3 (14-18) Glucose 113 (80-115) mg/dL Calcium 8.8 (8.5-10.1) mg/dL Magnesium 1.9 (1.8-2.4) mg/dl C-Reactive Protein 16.3 H* (<1.0) mg/dL MARIELY Results - Last 24 hrs: Microbiology 06/21/20 11:50 Aerobic Blood Culture - Preliminary Blood - Venous NO GROWTH AFTER 1 DAY Anaerobic Blood Culture - Preliminary NO GROWTH AFTER 1 DAY 06/21/20 11:55 Aerobic Blood Culture - Preliminary Blood - Venous - Lab Draw NO GROWTH AFTER 1 DAY Anaerobic Blood Culture - Preliminary NO GROWTH AFTER 1 DAY Med Orders - Current: Current Medications Acetaminophen (Tylenol) 650 mg PO Q4H PRN PRN Reason: Pain (Mild 1-3)/fever Calcium Carbonate (Calcium Carbonate/Vitamin D 600 Mg-200 Unit) 1 tab PO BID [facility] Last Admin: 06/23/20 09:41 Dose: 1 tab Documented by: Cephalexin (Keflex) 500 mg PO Q6HR [facility] Chlorthalidone (Chlorthalidone) 25 mg PO DAILY [facility] Last Admin: 06/23/20 09:41 Dose: 25 mg Documented by: Cholecalciferol (Vitamin D3) 50 mcg PO DAILY [facility] Last Admin: 06/23/20 09:41 Dose: 50 mcg Documented by: Enoxaparin Sodium (Lovenox) 40 mg SUBCUT DAILY [facility] Last Admin: 06/23/20 09:42 Dose: 40 mg Documented by: Losartan Potassium (Cozaar) 100 mg PO BEDTIME [facility] Last Admin: 06/22/20 20:32 Dose: 100 mg Documented by: Metoprolol Tartrate (Lopressor) 50 mg PO BID [facility] Last Admin: 06/23/20 09:41 Dose: 50 mg Documented by: Multivitamins (Thera) 1 each PO DAILY [facility] Last Admin: 06/23/20 09:41 Dose: 1 each Documented by: Ondansetron HCl (Zofran) 4 mg IV Q6H PRN PRN Reason: Nausea/Vomiting Pantoprazole Sodium (Protonix) 40 mg PO ACBREAKFAST [facility] Last Admin: 06/23/20 05:52 Dose: 40 mg Documented by: Simvastatin (Zocor) 20 mg PO BEDTIME [facility] Last Admin: 06/22/20 20:33 Dose: 20 mg Documented by: Sodium Chloride (Saline Flush) 10 ml FLUSH ASDIRECTED PRN PRN Reason: Keep Vein Open Last Admin: 06/21/20 11:48 Dose: 10 ml Documented by: Tamsulosin HCl (Flomax) 0.4 mg PO BEDTIME [facility]ANILO Last Admin: 06/22/20 20:33 Dose: 0.4 mg Documented by: Temazepam (Restoril) 15 - 45 mg PO BEDTIME PRN PRN Reason: Anxiety Last Admin: 06/22/20 22:09 Dose: 15 mg Documented by: Discontinued Medications Sodium Chloride (Normal Saline) 1,000 mls @ 100 mls/hr IV BOLUS ONE Stop: 06/21/20 21:32 Last Admin: 06/21/20 11:47 Dose: 100 mls/hr Documented by: Ceftriaxone Sodium 1 gm/ (Sodium Chloride) 100 mls @ 200 mls/hr IV ONETIME ONE Stop: 06/21/20 12:22 Last Admin: 06/21/20 12:17 Dose: 200 mls/hr Documented by: Piperacillin Sod/Tazobactam (Sod 4.5 gm/ Sodium Chloride) 100 mls @ 25 mls/hr IV Q8H [facility] Last Admin: 06/23/20 05:56 Dose: 25 mls/hr Documented by: Piperacillin Sod/Tazobactam (Sod 4.5 gm/ Sodium Chloride) 100 mls @ 200 mls/hr IV ONETIME ONE Stop: 06/21/20 14:29 Last Admin: 06/21/20 14:58 Dose: 200 mls/hr Documented by: Iopamidol (Isovue-300 (61%)) 100 ml IVPUSH ONETIME ONE Stop: 06/21/20 11:53 Last Admin: 06/21/20 12:11 Dose: 100 ml Documented by: Potassium Chloride (Klor-Con M20) 40 meq PO BID DANILO Stop: 06/23/20 09:01 Last Admin: 06/23/20 09:41 Dose: 40 meq Documented by: Sodium Chloride (Saline Flush) 10 ml FLUSH ONETIME PRN PRN Reason: IV FLUSH Last Admin: 06/21/20 12:11 Dose: 10 ml Documented by: - Exam Quality Assessment: Reports: DVT Prophylaxis. Denies: Supplemental Oxygen, Urine Catheter General: Reports: Alert, Oriented, Cooperative, No Acute Distress HEENT: Reports: Pupils Equal, Pupils Reactive, Mucous Membr. Moist/[place] Neck: Reports: Supple, Trachea Midline Lungs: Reports: Clear to Auscultation, Normal Respiratory Effort Cardiovascular: Reports: Regular Rate, Regular Rhythm GI/Abdominal Exam: Normal Bowel Sounds, Soft, Non-Tender, No Distention (Male) Exam: Deferred Rectal (Males) Exam: Deferred Back Exam: Reports: Normal Inspection, Full Range of Motion Extremities: Normal Inspection, Normal Range of Motion, Non-Tender, No Pedal Edema, Normal Capillary Refill Skin: Reports: Warm, Dry, Intact Neurological: Reports: No New Focal Deficit Psy/Mental Status: Reports: Alert, Normal Affect, Normal Mood
[2020-06-23] MEDS ORDERED: Cephalexin 500 MG Cap PO SCH (14:00)
== END 2020-06-23 10:47 | disposition home or self-care (01) | DRG 463 ==
LOC: JD.ED 10:17 → JD.MS 13:07
PROVIDERS: ADMIT Family Medicine; ATTEND Family Medicine
DX: N30.01 Acute cystitis with hematuria (principal); E78.5 Hyperlipidemia, unspecified; I10 Essential (primary) hypertension; E87.6 Hypokalemia; B96.20 Unspecified Escherichia coli [E. coli] as the cause of diseases classified elsewhere; Z20.822 Contact with and (suspected) exposure to COVID-19; E78.00 Pure hypercholesterolemia, unspecified; H54.7 Unspecified visual loss; Z85.51 Personal history of malignant neoplasm of bladder; Z85.118 Personal history of other malignant neoplasm of bronchus and lung; Z88.8 Allergy status to other drugs, medicaments and biological substances; Z79.899 Other long term (current) drug therapy; Z87.891 Personal history of nicotine dependence
CPT/HCPCS: 36415; 71046; 71046-26; 74177; 74177-26; 80048; 80053; 83605; 83735; 85007; 85025; 85027; 85610; 86140; 87040; 96365; 99221; 99232; 99239; 99284; 99285-25; A9270-GY; J0696; J1650; J2543; J7030; Q9967; U0002

== ENCOUNTER 2023-06-26 22:37 | Emergency (ER) | payer BC ==
[2023-06-26] MEDS: Sodium Chloride 0.9% 10 ML Syringe FLUSH PRN (23:21)
[2023-06-26 23:23] LABS: BASOPHILS ABSOLUTE AUTO 0.1 K/mm3 (0.0-0.2); BASOPHILS PERCENT AUTO 0.9 % (0.0-1.0); EOSINOPHILS ABSOLUTE AUTO 0.3 K/mm3 (0.0-0.4); EOSINOPHILS PERCENT AUTO 4.5 % (0.0-6.0); HEMATOCRIT 39.5 % (42.0-52.0); HEMOGLOBIN 14.2 gm/dl (14.0-18.0); IMMATURE GRAN ABSOLUTE AUTO 0.02 K/mm3 (0.00-0.05); IMMATURE GRAN PERCENT AUTO 0.3 % (0.0-0.4); LYMPHOCYTES PERCENT AUTO 14.8 % (24.0-44.0); MEAN CORPUSCULAR HGB CONC 35.9 g/dl (32.0-36.0); MEAN CORPUSCULAR VOLUME 86.2 fl (83.0-99.0); MEAN PLATELET VOLUME 8.1 fl (9.4-12.4); MONOCYTES ABSOLUTE AUTO 0.7 K/mm3 (0.0-0.8); MONOCYTES PERCENT AUTO 9.7 % (0.0-8.0); NEUTROPHILS ABSOLUTE AUTO 4.7 K/mm3 (1.8-7.7); NEUTROPHILS PERCENT AUTO 69.8 % (41.0-71.0); PLATELET COUNT,PLT 191 K/mm3 (150-400); RED BLOOD CELL COUNT 4.58 M/mm3 (4.52-5.90); WHITE BLOOD CELL COUNT,WBC 6.71 K/mm3 (3.9-11.3)
[2023-06-26 23:44] LABS: A/G RATIO 1.1 (1-2); ALBUMIN 3.7 g/dl (3.4-5.0); BILIRUBIN TOTAL 0.5 mg/dL (0.2-1.0); BUN/CREATININE RATIO 16.7 (14-18); CALCIUM 9.1 mg/dL (8.5-10.1); CREATININE 0.9 mg/dL (0.7-1.3); EST CRCL DRUG DOSING (CG) 88.31 mL/min; MAGNESIUM 1.6 mg/dL (1.8-2.4); PROTEIN TOTAL,TP 7.2 g/dl (6.4-8.2)
[2023-06-27] MEDS: Potassium Chloride 20 MEQ Tab.ER PO ONE (00:11)
[2023-06-27] MEDS: Magnesium Sulfate/Water 2 GM in Premix Bag 1 BAG IV ONE (00:11)
[2023-06-27] MEDS: Clopidogrel 75 MG Tab PO ONE (00:43)
== END 2023-06-27 02:12 | disposition home or self-care (01) ==
LOC: JD.ED 22:37
DX: H53.8 Other visual disturbances (principal); I10 Essential (primary) hypertension; E11.9 Type 2 diabetes mellitus without complications; E78.00 Pure hypercholesterolemia, unspecified; Z88.8 Allergy status to other drugs, medicaments and biological substances; Z79.899 Other long term (current) drug therapy
CPT/HCPCS: 36415; 70496; 80053; 83735; 85025; 96365; 96366; 99284; A9270; J3475; J3490; 99282